=== PATIENT | male | born 1985 | race Caucasian/White ===

== ENCOUNTER → 2018-01-19 07:26 | Outpatient (CLI) | payer OTHER, SELFPAY ==
[2018-01-19 11:21] LABS: Anion Gap 13.5 mEq/L (5-15); Blood Urea Nitrogen 15 mg/dL (7-18); Carbon Dioxide 28 mmol/L (21.0-32.0); Chloride 103 mmol/L (98-107); Creatinine,Serum 0.79 mg/dL (0.70-1.30); Estimated Glomerular Filt Rate 114 ml/min (>60); GFR (African American) 138 ML/MIN (>60); Glucose 107 mg/dL (74-106); Potassium 4.5 mmoL/L (3.5-5.1); Sodium 140 mmol/L (136-145)
== END ==
PROVIDERS: Visit Provider Physician Assistant
DX: I10 Essential (primary) hypertension (principal)
CPT/HCPCS: 36415; 80048

== ENCOUNTER → 2018-03-22 11:01 | Outpatient (POV) | payer OTHER, SELFPAY | PROVIDERS: Visit Provider Dentist | DX: Z00.00 Encounter for general adult medical examination without abnormal findings (principal) ==

== ENCOUNTER → 2018-03-26 14:36 | Outpatient (CLI) | payer OTHER, SELFPAY | PROVIDERS: PCP Family Medicine; Visit Provider Internal Medicine Cardiovascular Disease | DX: G47.33 Obstructive sleep apnea (adult) (pediatric) (principal); R06.83 Snoring; R40.0 Somnolence | CPT/HCPCS: 95806 ==

== ENCOUNTER → 2018-03-28 07:10 | Outpatient (CLI) | payer OTHER, SELFPAY ==
[2018-03-28 08:19] LABS: Basophils % 0.3 % (0.1-2.0); Eosinophils # 0.1 K/mm3 (0.0-0.4); Eosinophils % 1.3 % (0.1-12.0); Hematocrit 46.2 % (42.0-52.0); Hemoglobin 15.6 g/dL (14.1-18.0); Lymphocytes # 1.7 K/mm3 (0.7-4.5); Lymphocytes % 20.5 % (10-50); Mean Corpuscular HGB Conc 33.8 g/dL (31.8-35.4); Mean Corpuscular Hemoglobin 31.6 pg (27.0-31.2); Mean Corpuscular Volume 93.5 fl (80-94); Mean Platelet Volume 7.2 fl (7.4-10.4); Monocytes # 0.5 K/mm3 (0.1-1.0); Monocytes % 5.5 % (1.7-9.3); Neutrophils # 5.9 K/mm3 (1.8-7.8); Neutrophils % 72.4 % (37.0-80.0); Platelet Count 220 K/mm3 (142-424); Red Blood Count 4.95 M/mm3 (4.60-6.20); Red Cell Distribution Width 13.6 % (11.5-17.5); White Blood Count 8.2 K/mm3 (4.8-10.8)
[2018-03-28 10:08] LABS: Alanine Aminotransferase 41 U/L (12-78); Albumin Level 3.7 gm/dL (3.4-5.0); Alkaline Phosphatase 81 U/L (46-116); Anion Gap 13.4 mEq/L (5-15); Aspartate Amino Transferase 20 U/L (15-37); Bilirubin,Direct 0.1 mg/dL (0.0-0.2); Bilirubin,Indirect 0.3 mg/dL (0.0-0.9); Bilirubin,Total 0.4 mg/dL (0.2-1.0); Blood Urea Nitrogen 13 mg/dL (7-18); Calcium 8.7 mg/dL (8.5-10.1); Carbon Dioxide 27 mmol/L (21.0-32.0); Chloride 100 mmol/L (98-107); Chol/HDL Ratio 5.5 (1-3.5); Cholesterol 186 mg/dL (140-200); Creatinine,Serum 0.85 mg/dL (0.70-1.30); Estimated Glomerular Filt Rate 104 ml/min (>60); Free Thyroxine Index 2.6 ug/dL (5.93-13.13); GFR (African American) 126 ML/MIN (>60); Glucose 122 mg/dL (74-106); HDL Cholesterol 34 mg/dL (27-67); LDL Cholesterol 134 mg/dL (0-130); Potassium 4.4 mmoL/L (3.5-5.1); Sodium 136 mmol/L (136-145); T4 (Thyroxine) 8.3 ug/dl (4.7-13.3); Thyroid Stimulating Hormone 2.76 uIU/ml (0.358-3.740); Total Protein,Serum 7.2 gm/dL (6.4-8.2); Triglycerides 90 mg/dL (30-200); Triiodothryronine (T3) Uptake 31 % (31-39); VLDL Cholesterol 18 mg/dL (0-40)
== END ==
PROVIDERS: Visit Provider Internal Medicine Cardiovascular Disease
DX: E66.01 Morbid (severe) obesity due to excess calories (principal); I10 Essential (primary) hypertension; R06.83 Snoring; R40.0 Somnolence; R94.31 Abnormal electrocardiogram [ECG] [EKG]; Z68.41 Body mass index [BMI] 40.0-44.9, adult; Z82.49 Family history of ischemic heart disease and other diseases of the circulatory system
CPT/HCPCS: 36415; 80048; 80061; 80076; 84436; 84443; 84479; 85025

== ENCOUNTER → 2018-03-28 09:30 | Outpatient (CLI) | payer OTHER, SELFPAY ==
--- NOTE | 2018-03-28 09:32 | CA_ITS ---
PROCEDURE: 2-D M-mode and color Doppler study INDICATIONS FOR THE TEST: Chest pain COPD Heart Murmur Tobacco Smoking Palpitations Fatigue Syncope Edema Hypertension+Diabetes Mellitus Rheumatic Fever SOB SEWELL Obesity+Hyperlipidemia Family History HD+ Additional History PATIENT INFORMATION HEIGHT:71 WEIGHT:300 GENDER: Male B/P:121/76 2-D/M-MODE INTERPRETATION: 2-D MEASUREMENTS OBSERVED VALUES IN CMS Right Ventricular Dimension (RVDd) 2.4 Interventricular Septum (Thickness)(IVsd) 1.5 Left Ventricular Internal Dimensions(LVIDd) 3.9 Left Ventricular Posterior Wall (Thickness)(LVPWd) 1.5 Aortic Root 3.6 Aortic Cusp Separation 2.3 Left Atrial Dimensions (LAD) 4.1 2D 1. Left atrium is mildly enlarged, left ventricle is normal size, mild concentric left ventricular hypertrophy, visually estimated ejection fraction 55% with no regional wall motion abnormality. 2. The right atrium and right ventricle are normal size and contractility. 3. The aortic, mitral and tricuspid valvular grossly normal. 4. The pulmonic valve is poorly visualized. 5. No significant pericardial effusion noted. DOPPLER INTERROGATION: Doppler interrogation of the aortic, mitral and tricuspid valvular presence of mild mitral and tricuspid regurgitation, tricuspid regurgitation jet velocity is inadequate for calculation of the right ventricular systolic pressure, grade 1 diastolic dysfunction seen with tissue Doppler evidence of raised left atrial pressure. CONCLUSION: 1. Mildly enlarged left atrium, normal left ventricular size, mild concentric left ventricular hypertrophy, visually estimated ejection fraction 55% with no regional wall motion abnormality, grade 1 diastolic dysfunction seen with tissue Doppler evidence of raised left atrial pressure. 2. Mild mitral and tricuspid regurgitation 3. No significant pericardial effusion noted.
== END ==
PROVIDERS: PCP Family Medicine; Visit Provider Internal Medicine Cardiovascular Disease
DX: E66.01 Morbid (severe) obesity due to excess calories (principal); I10 Essential (primary) hypertension; R06.83 Snoring; R40.0 Somnolence; R94.31 Abnormal electrocardiogram [ECG] [EKG]; Z68.41 Body mass index [BMI] 40.0-44.9, adult; Z82.49 Family history of ischemic heart disease and other diseases of the circulatory system
CPT/HCPCS: 93306

== ENCOUNTER → 2018-04-05 08:09 | Outpatient (POV) | payer OTHER, SELFPAY | PROVIDERS: Visit Provider Dentist | DX: Z00.00 Encounter for general adult medical examination without abnormal findings (principal) ==

== ENCOUNTER → 2018-05-24 07:43 | Outpatient (CLI) | payer OTHER, SELFPAY ==
[2018-05-24 12:30] LABS: Alanine Aminotransferase 36 U/L (12-78); Albumin Level 3.6 gm/dL (3.4-5.0); Alkaline Phosphatase 83 U/L (46-116); Aspartate Amino Transferase 22 U/L (15-37); Bilirubin,Direct 0.1 mg/dL (0.0-0.2); Bilirubin,Indirect 0.4 mg/dL (0.0-0.9); Bilirubin,Total 0.5 mg/dL (0.2-1.0); Chol/HDL Ratio 4.1 (1-3.5); Cholesterol 124 mg/dL (140-200); HDL Cholesterol 30 mg/dL (27-67); LDL Cholesterol 78 mg/dL (0-130); Triglycerides 78 mg/dL (30-200); VLDL Cholesterol 16 mg/dL (0-40)
== END ==
PROVIDERS: Visit Provider Urology
DX: R94.31 Abnormal electrocardiogram [ECG] [EKG] (principal); I10 Essential (primary) hypertension; E66.9 Obesity, unspecified; R06.83 Snoring; R40.0 Somnolence; Z82.49 Family history of ischemic heart disease and other diseases of the circulatory system
CPT/HCPCS: 36415; 80061; 80076

== ENCOUNTER → 2018-05-25 15:16 | Outpatient (CLI) | payer OTHER, SELFPAY | PROVIDERS: Visit Provider Specialist | DX: G47.33 Obstructive sleep apnea (adult) (pediatric) (principal) | CPT/HCPCS: 94762 ==

== ENCOUNTER → 2018-11-16 07:10 | Outpatient (CLI) | payer OTHER, SELFPAY ==
[2018-11-16 08:42] LABS: Alanine Aminotransferase 37 U/L (12-78); Albumin Level 4.2 gm/dL (3.4-5.0); Alkaline Phosphatase 79 U/L (46-116); Aspartate Amino Transferase 22 U/L (15-37); Bilirubin,Direct 0.2 mg/dL (0.0-0.2); Bilirubin,Indirect 0.4 mg/dL (0.0-0.9); Bilirubin,Total 0.6 mg/dL (0.2-1.0); Chol/HDL Ratio 3.6 (1-3.5); Cholesterol 103 mg/dL (140-200); HDL Cholesterol 29 mg/dL (27-67); LDL Cholesterol 63 mg/dL (0-130); Total Protein,Serum 7.6 gm/dL (6.4-8.2); Triglycerides 54 mg/dL (30-200); VLDL Cholesterol 11 mg/dL (0-40)
== END ==
PROVIDERS: Visit Provider Nurse Practitioner Family
DX: E78.2 Mixed hyperlipidemia (principal)
CPT/HCPCS: 36415; 80061; 80076

== ENCOUNTER → 2019-05-03 10:50 | Outpatient (CLI) | payer OTHER, SELFPAY | PROVIDERS: PCP Family Medicine; Visit Provider Nurse Practitioner Family | DX: G47.33 Obstructive sleep apnea (adult) (pediatric) (principal) | CPT/HCPCS: 95806 ==

== ENCOUNTER 2020-02-07 20:29 | Emergency (ER) | payer OTHER, SELFPAY ==
[2020-02-07 20:41] VITALS: BP 138/85; PULSE 92; RESP 20; TEMP 37.2; O2SAT 96; BMI 36.2
--- NOTE | 2020-02-07 20:46 | HMH.EDUTC ---
[facility] [place] Clinical Impression: Exposure to COVID-19 virus Disposition: Home, Self-Care Condition on Discharge: Good Instructions: Preventing the Spread of Coronavirus Discharge Instructions Additional Instructions: Drink plenty of fluids. Take tylenol for pain or fever. Return if you begin to have difficulty breathing. Follow up with your regular doctor. GO TO THE ER FOR ANY WORSENING SYMPTOMS Referrals: Donnell Robin MD [Primary Care Provider] - Time of Disposition: 20:49 Medical Decision Making - Medical Records Medical records reviewed: No: I reviewed the patient's medical records. - Michael Inquiry Pt receiving controlled substance: No Vital Signs: 02/07/20 20:41 Temperature 99.0 F Temperature Source Oral Pulse Rate [Right Brachial] 92 H Respiratory Rate 20 Blood Pressure [Right Arm] 138/85 Blood Pressure Mean [Right Arm] 102 Blood Pressure Source [Right Arm] Automatic Cuff Blood Pressure Position [Right Arm] Sitting 02 Sat by Pulse Oximetry 96 Oxygen Delivery Method Room Air Orders (Tests/Meds): ORDERS Category Date Time Status Covid-19 Nasal PCR ([facility]) Routine Lab 02/07/20 20:44 Ordered [facility] [place] - General Stated complaint: cOVID TEST Time Seen by Provider: 02/07/20 20:46 Mode of Arrival: Ambulatory Source of Information: Patient Limitations: No Limitations Description of Symptoms (Recalled from Triage Doc. by RN): PATIENT REQUESTING COVID TEST D/T EXPOSURE; DENIES SYMPTOMS HEENT Symptoms (Recalled from RN notes): No Resp Symptoms (Recalled from RN notes): No Skin Symptoms (Recalled from RN notes): No MS Symptoms (Recalled from RN notes): No Functional Status (Recalled from RN notes): WNL - Related Data Previous Rx's Medication Instructions Recorded losartan 25 mg tablet 25 mg PO DAILY #90 tab 07/12/19 Allergies Allergy/AdvReac Type Severity Reaction Status Date / Time No Known Allergies Allergy Verified 11/22/18 11:45 - Worker's Comp Is this a Worker's Comp case?: No [facility] History - Hepatitis A Screen Drug use history?: No High risk sexual behaviors?: No History of sexually transmitted infection?: No Currently employed?: No Childcare worker?: No Do you have indoor plumbing?: Yes Do you have electricity?: Yes Attestation statement:: This patient has been screened for Hepatitis A risk factors. I have reviewed the patient's past medical history: Yes Medical History: Reports:: Hyperlipidemia, Hypertension Other Medical History: Reports: Other Comment: HEATH Other Surgeries: Yes: No Previous Surgery - Social History Smoking Status: Never smoker Alcohol Intake: never Substance Use Type: denies use Occupational Status: other Family Hx:: Coronary Artery Disease Comment: Mother-CAD. Maternal Grandmother-CAD. Maternal Grandfather-CAD ROS Obtained: Yes All systems reviewed & no additional complaints - Constitutional Constitutional: Reports system reviewed and no additional complaints, except as docu - Eyes Eyes: Reports system reviewed and no additional complaints, except as docu - ENT Ears, Nose, Mouth, and Throat: Reports system reviewed and no additional complaints, except as docu - Cardiovascular Cardiovascular: Reports system reviewed and no additional complaints, except as docu - Respiratory Respiratory: Yes system reviewed and no additional complaints, except as docu - Gastrointestinal Gastrointestingal: Reports: system reviewed and no additional complaints, except as docu Physical Exam - General General appearance: alert, in no apparent distress - Head Head exam: atraumatic, normocephalic, normal inspection - Eye Eye exam: Present: normal appearance, PERRL, EOMI - ENT ENT exam: Present: normal exam, normal oropharynx, mucous membranes moist, TM's normal bilaterally, normal external ear exam - Neck Neck exam: Present: normal inspection, full ROM, trachea midline. Absent: meningismus, l
[2020-02-07 20:50] VITALS: BP 138/85; PULSE 92; RESP 20; TEMP 37.2; O2SAT 96
== END 2020-02-07 20:53 | disposition home or self-care (01) ==
PROVIDERS: Emergency Provider Nurse Practitioner Family; PCP Family Medicine
DX: Z20.828 Contact with and (suspected) exposure to other viral communicable diseases (principal); I10 Essential (primary) hypertension; E78.5 Hyperlipidemia, unspecified; Z79.899 Other long term (current) drug therapy
CPT/HCPCS: 99201; U0003

== ENCOUNTER → 2021-02-18 08:01 | Outpatient (CLI) | payer OTHER, SELFPAY ==
[2021-02-18 08:10] LABS: Coronavirus 19, PCR Not Detected (NotDetected); Influenza A, PCR Not Detected (NotDetected); Influenza B, PCR Not Detected (NotDetected)
== END ==
PROVIDERS: PCP Family Medicine; Visit Provider Nurse Practitioner
DX: Z20.822 Contact with and (suspected) exposure to COVID-19 (principal)
CPT/HCPCS: C9803; U0003; U0005

== ENCOUNTER 2021-02-21 21:34 | Emergency (ER) | payer OTHER, SELFPAY ==
[2021-02-21 21:35] VITALS: BP 121/64; PULSE 121; RESP 20; TEMP 37.3; O2SAT 96; BMI 39.0
[2021-02-21 21:51] VITALS: BMI 39.0
--- NOTE | 2021-02-21 21:56 | XR_ITS ---
PROCEDURE INFORMATION: Exam: XR Chest Exam date and time: 02/21/2021 9:56 PM Age: 35 years old Clinical indication: Fever and shortness of breath TECHNIQUE: Imaging protocol: XR of the chest. Views: 2 views. COMPARISON: No relevant prior studies available. FINDINGS: Airway: Patent Lungs: Unremarkable. No consolidation. Pleural spaces: Unremarkable. No pleural effusion. No pneumothorax. Heart/Mediastinum: Unremarkable. No cardiomegaly. Bones/joints: No acute skeletal abnormality or aggressive osseous lesion. IMPRESSION: No acute findings.
--- NOTE | 2021-02-21 22:12 | HMH.EDWEAK ---
ED Disposition Clinical Impression: Bronchitis, SIRS (systemic inflammatory response syndrome) Disposition: Home, Self-Care Condition on Discharge: Good Instructions: DI for Acute Bronchitis Additional Instructions: fluids and use meds as directed Prescriptions: predniSONE [Prednisone 20mg Tab] 20 mg PO BID #10 tab Transmission Status: [facility] Azithromycin [Zithromax 250mg tab] 250 mg PO DIRECTED #6 tab Transmission Status: [facility] Referrals: Donnell Robin MD [Primary Care Provider] - - Critical Care Critical Care Time: No Attestation: On 02/21/21, the high probability of a clinically significant, sudden or life threatening deterioration of the following system(s) required my full and direct attention, intervention and personal management. The time I documented below is in addition to time spent performing reported procedures but includes the following listed in this critical care notation. Medical Decision Making - Medical Records Medical records reviewed: Yes: I reviewed the patient's medical records. - Michael Inquiry Pt receiving controlled substance: No Vital Signs: 02/21/21 21:35 Temperature 99.2 F Temperature Source Oral Pulse Rate [Right] 121 H Respiratory Rate 20 Blood Pressure [Right Arm] 121/64 Blood Pressure Mean [Right Arm] 83 02 Sat by Pulse Oximetry 96 - Lab Data Lab results reviewed: Yes: I reviewed the patient's lab results. Lab Results 02/21/21 21:50: SARS-CoV-2 (PCR) Not detected, Influenza A Untype (PCR) Not detected, Influenza Type B (PCR) Not detected 02/21/21 22:07: WBC 2.5 L, RBC 4.69, Hgb 14.5, Hct 41.0 L, MCV 87.3, MCH 30.9, MCHC 35.4, RDW 13.3, Plt Count 110 L, MPV 8.2, Neut % (Auto) 69.7, Lymph % (Auto) 26.5, Clayton % (Auto) 2.6, Eos % (Auto) 1.1, Baso % (Auto) 0.3, Neut # (Auto) 1.7 L, Lymph # (Auto) 0.7, Clayton # (Auto) 0.1, Eos # (Auto) 0.0, Baso # (Auto) 0.0, ESR 31 H 02/21/21 22:07: Sodium 132 L, Potassium 3.8, Chloride 102, Carbon Dioxide 25, Anion Gap 8.8, BUN 16, Creatinine 0.70, Estimated Creat Clear 265, Estimated GFR 128, Est GFR ( Amer) 155, Glucose 136 H, Calcium 8.8, Total Bilirubin 1.3, AST 57, ALT 41, Alkaline Phosphatase 74, C-Reactive Protein 62.3 H, Total Protein 7.1, Albumin 4.0, Globulin 3.1, Albumin/Globulin Ratio 1.3, Procalcitonin 0.192 Result diagrams: 02/21/21 22:07 02/21/21 22:07 Orders (Tests/Meds): ED MEDICATIONS Generic Name Dose Route Start Last Admin Trade Name Freq PRN Reason Stop Dose Admin Sodium Chloride 1,000 mls @ 999 mls/hr 02/21/21 22:00 02/21/21 22:54 Sod Chlor 0.9% 1000ml Bag IV 02/21/21 23:00 999 mls/hr .Q1H1M DEBORAH Administration Ceftriaxone Sodium 1 gm/ 50 mls @ 100 mls/hr 02/21/21 23:45 02/21/21 23:42 Sodium Chloride IV 03/07/21 23:44 100 mls/hr Q24H DEBORAH Administration Discontinued Medications Generic Name Dose Route Start Last Admin Trade Name Freq PRN Reason Stop Dose Admin Ketorolac Tromethamine 30 mg 02/21/21 21:57 02/21/21 22:54 Ketorolac 30mg/Ml Vial IV 02/21/21 21:58 30 mg ONCE ONE Administration Methylprednisolone Sodium Succinate 125 mg 02/21/21 23:31 02/21/21 23:42 Methylprednisolone Sod Succ 125mg Vial IV 02/21/21 23:32 125 mg ONCE ONE Administration ORDERS Category Date Time Status Full Resp Panel w/COVID ([facility]) Routine Lab 02/21/21 21:50 Received - Radiology Data #1 Image(s): Chest Image Reviewed: Yes I have reviewed radiologist's interpretation Preliminary Findings: Normal/NAD Medical Decision Narrative: possible atypical infection with no covid-19 and stable labs and xray Weakness HPI - General Chief complaint: Weakness Stated complaint: fever,SOB Time Seen by Provider: 02/21/21 21:45 Mode of Arrival: Ambulatory Source of Information: Patient, Medical Record Limitations: No Limitations Description of Symptoms (Recalled from ER Triage Doc. by RN): pt
[2021-02-21 22:16] LABS: Coronavirus 19, PCR Not Detected (NotDetected); Influenza A, PCR Not Detected (NotDetected); Influenza B, PCR Not Detected (NotDetected)
[2021-02-21 22:19] LABS: Basophils % 0.3 % (0.1-2.0); Eosinophils % 1.1 % (0.1-12.0); Hemoglobin 14.5 g/dL (14.1-18.0); Lymphocytes # 0.7 K/mm3 (0.7-4.5); Lymphocytes % 26.5 % (10-50); Mean Corpuscular HGB Conc 35.4 g/dL (31.8-35.4); Mean Corpuscular Hemoglobin 30.9 pg (27.0-31.2); Mean Corpuscular Volume 87.3 fl (80-94); Mean Platelet Volume 8.2 fl (7.4-10.4); Monocytes # 0.1 K/mm3 (0.1-1.0); Monocytes % 2.6 % (1.7-9.3); Neutrophils # 1.7 K/mm3 (1.8-7.8); Neutrophils % 69.7 % (37.0-80.0); Platelet Count 110 K/mm3 (142-424); Red Blood Count 4.69 M/mm3 (4.60-6.20); Red Cell Distribution Width 13.3 % (11.5-17.5); White Blood Count 2.5 K/mm3 (4.8-10.8)
[2021-02-21 22:23] LABS: Alanine Aminotransferase 41 U/L (12-78); Albumin/Globulin Ratio 1.3 (1.1-1.8); Alkaline Phosphatase 74 U/L (38-126); Anion Gap 8.8 mEq/L (5-15); Aspartate Amino Transferase 57 U/L (17-59); Bilirubin,Total 1.3 mg/dl (0.2-1.3); Blood Urea Nitrogen 16 mg/dl (9-20); Calcium 8.8 mg/dl (8.4-10.2); Carbon Dioxide 25 mmol/L (22.0-30.0); Chloride 102 mmol/L (98-107); Creatinine Clearance Estimated 265 mL/min (50-200); Estimated Glomerular Filt Rate 128 ml/min (>60); GFR (African American) 155 ML/MIN (>60); Globulin 3.1 g/dL (1.3-3.2); Glucose 136 mg/dl (74-100); Potassium 3.8 mmoL/L (3.5-5.1); Sodium 132 mmol/L (136-145); Total Protein,Serum 7.1 g/dl (6.3-8.2)
[2021-02-21 22:29] LABS: C-Reactive Protein 62.3 mg/L (0-4)
[2021-02-21 22:43] LABS: Erythrocyte Sedimentation Rate 31 mm/hr (0-15); Procalcitonin 0.192 ng/mL (0.0-2.0)
[2021-02-21 23:07] LABS: Adenovirus,PCR Not Detected (NotDetected); Bordetella Pertussis Not Detected (NotDetected); Chlamydophila Pneumoniae, PCR Not Detected (NotDetected); Coronavirus 19, PCR Not Detected (NotDetected); Coronavirus 229E Not Detected (NotDetected); Coronavirus NL63 Not Detected (NotDetected); Coronavirus OC43 Not Detected (NotDetected); Coronovirus HKU1,PCR Not Detected (NotDetected); Human Metapneumovirus Not Detected (NotDetected); Influenza A, PCR Not Detected (NotDetected); Influenza AH1, 2009 Not Detected (NotDetected); Influenza AH1, PCR Not Detected (NotDetected); Influenza AH3,PCR Not Detected (NotDetected); Influenza B, PCR Not Detected (NotDetected); Mycoplasma Pneumoniae, PCR Not Detected (NotDetected); Parainfluenza 1, PCR Not Detected (NotDetected); Parainfluenza 2, PCR Not Detected (NotDetected); Parainfluenza 3, PCR Not Detected (NotDetected); Parainfluenza 4, PCR Not Detected (NotDetected); Respiratory Syncytial Virus Not Detected (NotDetected); Rhinovirus/Enterovirus Not Detected (NotDetected)
[2021-02-21 23:59] VITALS: BP 120/67; PULSE 91; RESP 20; TEMP 37; O2SAT 98
--- NOTE | 2021-02-22 00:04 | PC.NURSE ---
~30 min left on respiratory panel, notified. Pt ok with going home and viewing results on portal
== END 2021-02-22 00:16 | disposition home or self-care (01) ==
PROVIDERS: Emergency Provider Emergency Medicine; PCP Family Medicine
DX: J20.9 Acute bronchitis, unspecified (principal); R65.10 Systemic inflammatory response syndrome (SIRS) of non-infectious origin without acute organ dysfunction; I10 Essential (primary) hypertension; E78.5 Hyperlipidemia, unspecified
CPT/HCPCS: 71046; 80053; 84145; 85025; 85651; 86140; 87581; 87632; 87798; 96365; 96367; 96375; 99283; C9803; U0003; U0005

== ENCOUNTER 2021-10-09 16:19 | Emergency (ER) | payer OTHER, SELFPAY ==
[2021-10-09 16:21] VITALS: BP 133/65; PULSE 104; RESP 17; TEMP 36.9; O2SAT 97; BMI 39.0
--- NOTE | 2021-10-09 16:54 | HMH.EDUTC ---
[facility] [place] Disposition Clinical Impression: Laceration of left thumb Qualifiers: Encounter type: initial encounter Damage to nail status: without damage Foreign body presence: without foreign body Qualified Code(s): S61.012A - Laceration without foreign body of left thumb without damage to nail, initial encounter Disposition: Home, Self-Care Condition on Discharge: Good Instructions: How to Care for a Laceration After Repair, DI for Laceration Repair -- Simple Additional Instructions: Keep the wound clean and dry. Keep a dressing on it if you are going to be getting it dirty. Watch the for signs of infection, such as redness, swelling, drainage, fever. etc. Taketylenol or ibuprofen for pain. Follow up with your regular doctor. Return in 10 days to have the sutures removed. GO TO THE ER FOR ANY WORSENING SYMPTOMS OR CONCERNS. Prescriptions: cephALEXin [cephALEXin 500mg capsule] 500 mg PO Q6H 10 Days #40 cap Transmission Status: Received by [id number] Referrals: Donnell Robin MD [Primary Care Provider] - Time of Disposition: 18:12 Medical Decision Making - Medical Records Medical records reviewed: No: I reviewed the patient's medical records. - Michael Inquiry Pt receiving controlled substance: No Vital Signs: 10/09/21 16:21 10/09/21 16:58 10/09/21 18:18 Temperature 98.5 F 98.9 F 98.9 F Temperature Source Oral Oral Pulse Rate 94 H Pulse Rate [Right Radial] 104 H 94 H Respiratory Rate 17 17 17 Blood Pressure 139/88 Blood Pressure [Right Arm] 133/65 139/88 Blood Pressure Mean [Right Arm] 87 105 Blood Pressure Source [Right Arm] Automatic Cuff Blood Pressure Position [Right Arm] Sitting 02 Sat by Pulse Oximetry 97 100 Oxygen Delivery Method Room Air [facility] [place] HPI - General Stated complaint: AO 10/09 L thumb lac Time Seen by Provider: 10/09/21 16:54 Mode of Arrival: Ambulatory Source of Information: Patient Limitations: No Limitations Description of Symptoms (Recalled from Triage Doc. by RN): Pt presents with a lac to the left thumb. States that he was using a new razor blade to cut a deer stand out of a tree, when the knife slipped, cutting his thumb. - History of Present Illness Provider Complaint: He states that he was cutting something on a deer stand when he slipped and cut his left thumb. 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 - Related Data Previous Rx's Medication Instructions Recorded losartan 25 mg tablet 25 mg PO DAILY #90 tab 07/12/19 Azithromycin [Zithromax 250mg 250 mg PO DIRECTED #6 tab 02/22/21 tab] predniSONE [Prednisone 20mg 20 mg PO BID #10 tab 02/22/21 Tab] cephALEXin [cephALEXin 500mg 500 mg PO Q6H 10 Days #40 cap 10/09/21 capsule] Allergies Allergy/AdvReac Type Severity Reaction Status Date / Time No Known Allergies Allergy Verified 11/22/18 11:45 [facility] History - Hepatitis A Screen Attestation statement:: This patient has been screened for Hepatitis A risk factors. I have reviewed the patient's past medical history: Yes Medical History: Reports:: Hyperlipidemia, Hypertension Other Medical History: Reports: Other Comment: HEATH Other Surgeries: Yes: No Previous Surgery - Social History Smoking Status: Never smoker Alcohol Intake: never Substance Use Type: denies use Occupational Status: other Family Hx:: Coronary Artery Disease Comment: Mother-CAD. Maternal Grandmother-CAD. Maternal Grandfather-CAD ROS Obtained: Yes All systems reviewed & no additional complaints - Constitutional Constitutional: Denies chills, Denies fever(s) - Musculoskeletal Musculoskeletal: Denies joint pain - Integumentary/Breasts Skin/Breast: Reports as per HPI - Neurologic Neurologic: Denies tingling/numbness/burning sensations Physical Exam - General General appearance: alert, in no apparent distress - Head Head exam: atraumatic, normocephalic, normal insp
[2021-10-09 16:58] VITALS: BP 139/88; PULSE 94; RESP 17; TEMP 37.2; O2SAT 100; BMI 39.0
--- NOTE | 2021-10-09 18:15 | PC.NURSE ---
patient refused tdap shot stating that last time he received the shot it made him very sick. notified
[2021-10-09 18:18] VITALS: BP 139/88; PULSE 94; RESP 17; TEMP 37.2
== END 2021-10-09 18:19 | disposition home or self-care (01) ==
PROVIDERS: Emergency Provider Nurse Practitioner Family; PCP Family Medicine
DX: S61.012A Laceration without foreign body of left thumb without damage to nail, initial encounter (principal); W26.0XXA Contact with knife, initial encounter; Y93.89 Activity, other specified; Y92.9 Unspecified place or not applicable; Y99.8 Other external cause status
CPT/HCPCS: 12001; 99213; G0463

== ENCOUNTER 2022-05-21 14:55 | Emergency (ER) | payer OTHER, SELFPAY ==
[2022-05-21 15:10] VITALS: BP 144/89; PULSE 87; RESP 20; TEMP 36.5; O2SAT 99; BMI 39.7
--- NOTE | 2022-05-21 15:58 | EXP.UTC ---
Discharge Plan Disposition Patient Disposition: Home, Self-Care Condition: Good Prescriptions Prescriptions: New sulfamethoxazole-trimethoprim [Bactrim DS] 800-160 mg tablet 1 tab PO Q12H Qty: 20 0RF methylprednisolone [Medrol (Reid)] 4 mg tablets,dose pack 4 mg PO ONCE 6 Days Qty: 6 0RF Rx Instructions: Medrol dose taper reid Referrals Follow up/Referrals: Donnell Robin MD [Primary Care Provider] - See instructions Clinical Impressions Clinical Impression: Cellulitis Instructions Patient Instructions: Cellulitis Discharge ED Provider: Yanira Pfeiffer [facility] [place] HPI General Stated complaint: left side swollen face and eye Mode of Arrival: Ambulatory Source of Information: Patient Limitations: No Limitations Time Seen by Provider: 05/21/22 15:38 Description of Symptoms (Recalled from Triage Doc. by RN): PATIENT C/O SWELLING TO LEFT SIDE OF FACE X 2 DAYS HEENT Symptoms (Recalled from RN notes): Yes Resp Symptoms (Recalled from RN notes): No Skin Symptoms (Recalled from RN notes): No MS Symptoms (Recalled from RN notes): No Functional Status (Recalled from RN notes): wnl History of Present Illness Provider Complaint: Pt states that he started with a sore in his brow like a pimple or infected hair follicle. He relates that the next day he had some swelling around his eye and then the next day the whole left side of his face. He was on a trip at the time and waited to get home to be seen. Related Data Previous Rx's Medication Instructions Recorded methylprednisolone 4 mg tablets in 4 mg PO ONCE 6 days #6 tabs 05/21/22 a dose pack (Medrol (Reid)) sulfamethoxazole 800 1 tab PO Q12H #20 tabs 05/21/22 mg-trimethoprim 160 mg tablet (Bactrim DS) Allergies Allergy/AdvReac Type Severity Reaction Status Date / Time No Known Allergies Allergy Verified 02/25/22 10:41 Worker's Comp Is this a Worker's Comp case?: No [facility] Disclaimer: The information contained in this section may have been updated after the patient was seen, as this information can be updated by other users. Medical History Bronchitis Diastolic dysfunction Exposure to COVID-19 virus HTN (hypertension) Laceration of left thumb HEATH on CPAP SIRS (systemic inflammatory response syndrome) Tachycardia URI (upper respiratory infection) Social History Smoking Status: Never smoker alcohol intake: never substance use type: denies use current occupational status: other Travel in the last 8 weeks: None ROS Obtained: Yes All systems reviewed & no additional complaints except as documented Constitutional Constitutional: Reports system reviewed and no additional complaints, except as documented Eyes Eyes: Reports system reviewed and no additional complaints, except as documented Comments: left eye lid swelling ENT Ears, Nose, Mouth, and Throat: Reports system reviewed and no additional complaints, except as documented Cardiovascular Cardiovascular: Reports system reviewed and no additional complaints, except as documented Respiratory Respiratory: Reports system reviewed and no additional complaints, except as documented Gastrointestinal Gastrointestingal: Reports system reviewed and no additional complaints, except as documented Genitourinary Male Genitourinary: Reports system reviewed and no additional complaints, except as documented Musculoskeletal Musculoskeletal: Reports system reviewed and no additional complaints, except as documented Integumentary/Breasts Skin/Breast: Reports system reviewed and no additional complaints, except as documented and Reports skin swelling Comments: swelling of face Neurologic Neurologic: Reports system reviewed and no additional complaints, except as documented Endocrine Endocrine: Reports system reviewed and no additional complaints, except as documented Aller
[2022-05-21 16:19] VITALS: BP 144/89; PULSE 87; RESP 20; TEMP 36.5; O2SAT 99
== END 2022-05-21 16:26 | disposition home or self-care (01) ==
PROVIDERS: Emergency Provider Nurse Practitioner Family; PCP Family Medicine
DX: L03.211 Cellulitis of face (principal)
CPT/HCPCS: 96372; 99212; 99214; G0463

== ENCOUNTER → 2023-02-23 07:03 | Outpatient (CLI) | payer OTHER, SELFPAY ==
[2023-02-23 07:40] LABS: Basophils % 0.4 % (0.1-2.0); Eosinophils # 0.1 K/mm3 (0.0-0.4); Eosinophils % 1.5 % (0.1-12.0); Hemoglobin 16.5 g/dL (14.1-18.0); Lymphocytes # 1.3 K/mm3 (0.7-4.5); Lymphocytes % 20.6 % (10-50); Mean Corpuscular HGB Conc 34.4 g/dL (31.8-35.4); Mean Corpuscular Hemoglobin 32.3 pg (27.0-31.2); Mean Platelet Volume 8.2 fl (7.4-10.4); Monocytes # 0.4 K/mm3 (0.1-1.0); Monocytes % 5.9 % (1.7-9.3); Neutrophils # 4.6 K/mm3 (1.8-7.8); Neutrophils % 71.5 % (37.0-80.0); Platelet Count 189 K/mm3 (142-424); Red Cell Distribution Width 13.5 % (11.5-17.5); White Blood Count 6.5 K/mm3 (4.8-10.8)
[2023-02-23 07:48] LABS: Hemoglobin A1C 5.7 % (4.0-6.0)
[2023-02-23 08:57] LABS: Thyroid Stimulating Hormone 2.96 uIU/mL (0.465-4.68)
[2023-02-23 09:01] LABS: Ferritin 345 ng/ml (17.9-464)
[2023-02-23 12:19] LABS: Vitamin B12 351 pg/mL (239-931)
[2023-02-24 10:12] LABS: Insulin Level Total 32.4 uIU/mL (2.6-24.9)
== END ==
PROVIDERS: PCP Nurse Practitioner Family; Visit Provider Nurse Practitioner Family
DX: G47.33 Obstructive sleep apnea (adult) (pediatric) (principal); R63.5 Abnormal weight gain; Z99.89 Dependence on other enabling machines and devices; R73.09 Other abnormal glucose
CPT/HCPCS: 36415; 82607; 82728; 83036; 83525; 84443; 85025

== ENCOUNTER 2023-06-21 14:39 | Outpatient (CLI) | payer OTHER, SELFPAY ==
[2023-06-21 14:15] LABS: Hemoglobin A1C 5.7 % (4.0-6.0)
[2023-06-21 14:43] LABS: Chloride 105 mmol/L (98-107); Potassium 4.4 mmoL/L (3.5-5.1); Sodium 139 mmol/L (136-145)
[2023-06-21 14:45] LABS: Blood Urea Nitrogen 8 mg/dl (9-20); Estimated Glomerular Filt Rate 152 ml/min (>60); GFR (African American) 183 ML/MIN (>60)
[2023-06-21 14:46] LABS: Alanine Aminotransferase 51 U/L (12-78); Albumin Level 4.3 g/dl (3.5-5.0); Albumin/Globulin Ratio 1.6 (1.1-1.8); Alkaline Phosphatase 78 U/L (38-126); Anion Gap 12.4 mEq/L (5-15); Aspartate Amino Transferase 38 U/L (17-59); Bilirubin,Total 0.7 mg/dl (0.2-1.3); Calcium 9.2 mg/dl (8.4-10.2); Carbon Dioxide 26 mmol/L (22.0-30.0); Globulin 2.7 g/dL (1.3-3.2); Glucose 106 mg/dl (74-100)
[2023-06-22 09:14] LABS: Insulin Level Total 24.4 uIU/mL (2.6-24.9)
== END 2023-06-21 23:59 | disposition home or self-care (01) ==
LOC: LAB.DROPOF 14:39
PROVIDERS: PCP Nurse Practitioner Family; Visit Provider Nurse Practitioner Family
DX: R73.03 Prediabetes (principal)
CPT/HCPCS: 80053; 83036; 83525

== ENCOUNTER 2023-07-18 07:12 | Outpatient (CLI) | payer OTHER, SELFPAY ==
[2023-07-18 09:34] LABS: 25-OH Vitamin D, Total 24.5 ng/mL (30-100)
[2023-07-19 16:32] LABS: Deamidated Gliadin Abs, IgA 8 units (0-19); Deamidated Gliadin Abs, IgG 3 units (0-19); Endomysial IgA Antibody Negative (Negative); Tissue Transglutaminase IgA Ab <2 U/mL (0-3); Tissue Transglutaminase IgG Ab 4 U/mL (0-5)
[2023-07-21 11:19] LABS: Reticulin IgA Antibody Negative titer (Neg:<1:2.5)
[2023-07-23 12:55] LABS: F026-IgE Pork 1.98 kU/L (Class III); F027-IgE Beef 2.54 kU/L (Class III); F088-IgE Lamb 1.41 kU/L (Class III); Immunoglobulin E, Total 2432 IU/mL (6-495); O215-IgE Alpha-Gal 6.17 kU/L (Class IV)
== END 2023-07-18 23:59 | disposition home or self-care (01) ==
LOC: LAB 07:13
PROVIDERS: PCP Nurse Practitioner Family; Visit Provider Nurse Practitioner Family
DX: L13.0 Dermatitis herpetiformis (principal); R19.7 Diarrhea, unspecified; R73.03 Prediabetes; R63.5 Abnormal weight gain; E55.9 Vitamin D deficiency, unspecified; Z68.41 Body mass index [BMI] 40.0-44.9, adult
CPT/HCPCS: 36415; 82306; 83516; 86255; 86256

== ENCOUNTER 2023-10-24 15:38 | Outpatient (POV) | payer OTHER, SELFPAY | END 2023-10-24 23:59 | disposition home or self-care (01) | LOC: SC 15:39 | PROVIDERS: PCP Nurse Practitioner Family; Visit Provider Dermatology | DX: Z00.00 Encounter for general adult medical examination without abnormal findings (principal) ==

== ENCOUNTER 2024-12-23 07:30 | Emergency (ER) | payer OTHER, SELFPAY ==
[2024-12-23 07:32] VITALS: BP 140/90; PULSE 78; RESP 17; TEMP 36.8; O2SAT 100; BMI 41.8
--- NOTE | 2024-12-23 07:33 | HMH.EDGENADL ---
Discharge Plan Disposition Patient Disposition: Home, Self-Care Condition: Fair Prescriptions Prescriptions: New acetaminophen 500 mg capsule 1,000 mg PO Q6H PRN (Reason: pain) Qty: 30 0RF ibuprofen 800 mg tablet 800 mg PO Q8H Qty: 30 0RF tamsulosin [Flomax] 0.4 mg capsule 0.4 mg PO DAILY Qty: 7 0RF ondansetron 4 mg tablet,disintegrating 4 mg PO Q6HP PRN (Reason: nausea and vomiting) Qty: 20 0RF oxycodone 5 mg tablet 5 mg PO Q6H PRN (Reason: pain) Qty: 12 0RF No Action epinephrine [EpiPen 2-Reid] 0.3 mg/0.3 mL auto-injector 0.3 mg IM Q5-15M PRN (Reason: anaphylaxis) Qty: 2 1RF Rx Instructions: do not exceed 3 doses per episode ofloxacin 0.3 % drops See Rx Instructions ophthalmic (eye) .COMPLEX Qty: 10 0RF Rx Instructions: put 1-2 drps into affected eye(s) every 2-4 h x 2 days, then 1-2 drps 4 times/day days 3-7 ophthalmic (eye) triamcinolone acetonide 0.1 % cream 1 applic topical BID Qty: 30 2RF Referrals Follow up/Referrals: Yulissa Ledesma APRN [Primary Care Provider, Medical] - See instructions Activity Restrictions/Add. Instructions Additional Instructions/Restrictions: Stay well-hydrated. Strain your urine and collect any stone. Follow-up with urology. Call them to make an appointment. [phone]. Return to the emergency department at once if you develop any fevers, inability to urinate, worsening pain despite the medications at home. You have been prescribed opioid pain medications. Take only as prescribed and only when needed for pain. Please do not drive, operate heavy machinery, or make important decisions while taking this medication until you know how it affects you as they can impair your judgement. Do not drink alcohol while taking this medication. Should you need a refill of this pain medication, please contact your primary care provider. Clinical Impressions Clinical Impression: Ureterolithiasis Print Language Print Language: Korean Discharge ED Provider: Steven Harper Adult [facility] General Chief complaint: PAIN Stated complaint: side/back Pain-L side Time Seen by Provider: 12/23/24 07:33 History of Present Illness HPI narrative: Patient is a 39-year-old male with no significant past medical history who presents today for left flank pain. He does have a history of kidney stones once about 15 years ago that was treated symptomatically. He reports that about 30 minutes prior to arrival, he began to feel left flank pain that is sharp and stabbing and coming in waves. It is similar to his previous pain that he felt with his kidney stone. He reports that he has urinated normally since then. No hematuria. No dysuria. No fevers nausea vomiting diarrhea. He had a normal bowel movement yesterday and is still passing gas. No abdominal surgical history. Denies any chest pain shortness of breath or other constitutional symptoms like cough congestion runny nose. He does report that he was slightly fatigued over the weekend. Eating and drinking normally. Related Data Previous Rx's ?Medication ?Instructions ?Recorded epinephrine 0.3 mg/0.3 mL 0.3 mg (0.3 mL) IM Q5-15M PRN 07/25/23 injection, auto-injector (EpiPen anaphylaxis #2 ea 2-Reid) ofloxacin 0.3 % eye drops See Rx Instructions ophthalmic 05/09/24 (eye) .COMPLEX #10 mL triamcinolone acetonide 0.1 % 1 applic topical BID #30 grams 07/17/24 topical cream acetaminophen 500 mg capsule 1,000 mg (2 x 500 mg) PO Q6H PRN 12/23/24 pain #30 caps ibuprofen 800 mg tablet 800 mg PO Q8H #30 tabs 12/23/24 ondansetron 4 mg disintegrating 4 mg PO Q6HP PRN nausea and 12/23/24 tablet vomiting #20 tabs oxycodone 5 mg tablet 5 mg PO Q6H PRN pain #12 tabs 12/23/24 tamsulosin 0.4 mg capsule (Flomax) 0.4 mg PO DAILY #7 caps 12/23/24 Allergies Allergy/AdvReac Type Severity Reaction Status Date / Time No Known Allergies Allergy Verified 02/29/24 15:12 [facility] Disclaimer: The information contained in this section may have been updated after the patient was seen, as this information can be updated by other users. Medical History BMI 40.0-44.9, adult Bronchitis Diastolic dysfunction Exposure to COVID-19 virus HTN (hypertension) Laceration of left thumb HEATH on CPAP History of severe HEATH, significant improvement with weight loss, reoccurrence with weight gain, appropriately resumed CPAP SIRS (systemic inflammatory response syndrome) Tachycardia URI (upper respiratory infection) Surgical History No history of previous surgery Family History Other Diabetes Hypertension Sleep apnea Social History Smoking Status: Never smoker alcohol intake: never substance use type: denies use current occupational status: employed and other Travel in the last 8 weeks?: None household members: spouse housing: house marital status: caffeine: Yes Have you lived/traveled outside [place] in past 30 days?: No Contact w/someone who lives/traveled outside US past 30 days?: No Exposure to someone with infectious disease in past 14 days?: No Do you have a fever (greater than 100.4 F or 38 C)?: No Have you tested positive for COVID-19?: No Exposed to someone with COVID-19 in past 14 days?: No Do you have a sore throat?: No Do you have a cough?: No Do you have any weakness?: No Do you have any diarrhea?: No Are you experiencing any unusual bleeding?: No Do you have any muscle aches/pain?: No Do you have any abdominal pain?: No Are you experiencing loss of taste or smell?: No Other Medical History Have you received the Flu Vaccine for this season: Yes Have you received the Pneumonia Vaccine: No ROS Obtained: Yes All systems reviewed & no additional complaints except as documented Physical Exam General General appearance: alert and in no apparent distress Head Head exam: atraumatic and normocephalic Eye Eye exam: Present PERRL and EOMI ENT ENT exam: Present normal oropharynx Neck Neck exam: Present full ROM and trachea midline Chest Chest inspection: Present symmetric chest wall rise Respiratory Respiratory exam: Present normal lung sounds bilaterally; Absent stridor Cardiovascular Cardiovascular exam: Present regular rate and normal rhythm Abdominal Exam Abdominal exam: Present soft and other (Moderate left flank tenderness); Absent distention or tenderness Extremities Exam Extremities exam: Present full ROM Neurological Exam Neurological exam: Present alert and oriented X3 Psychiatric Psychiatric exam: Present normal mood Skin Skin exam: Present warm and dry Medical Decision Making Medical Records Screening: Per USPSTF and CDC recommendations, given the prevalence of disease in our region, it is our hospital?s policy to screen for HIV and viral Hepatitis for all patients aged 18 and over and those with ongoing risk factors. Michael Inquiry Pt receiving controlled substance: Yes Michael was queried for this patient: Yes Risks and benefits of using a controlled substance: were discussed with pt by me Vital Signs: 12/23/24 07:32 12/23/24 07:32 12/23/24 07:37 Temperature 98.3 F 98.3 F Temperature Source Oral Oral Pulse Rate 78 74 Pulse Rate [Right] 78 Respiratory Rate 17 17 Blood Pressure 140/90 140/90 Blood Pressure [Right Arm] 140/90 Blood Pressure Mean Blood Pressure Mean [Right Arm] 106 Blood Pressure Source Automatic Cuff Blood Pressure Source [Right Arm] Automatic Cuff Blood Pressure Position Supine Blood Pressure Position [Right Arm] Supine 02 Sat by Pulse Oximetry 100 100 99 Oxygen Delivery Method Room Air Room Air Room Air 12/23/24 09:30 12/23/24 10:00 Temperature Temperature Source Pulse Rate 74 124 H Pulse Rate [Right] Respiratory Rate Blood Pressure 132/80 124/76 Blood Pressure [Right Arm] Blood Pressure Mean 85 Blood Pressure Mean [Right Arm] Blood Pressure Source Blood Pressure Source [Right Arm] Blood Pressure Position Blood Pressure Position [Right Arm] 02 Sat by Pulse Oximetry 99 96 Oxygen Delivery Method Room Air Room Air Lab Data Lab Results 12/23/24 07:30: HCV Ab RASHIDA w/Rflx PCR Qn Negative, HIV Ag/Ab Combo Qual Negative 12/23/24 07:38: WBC 7.1, RBC 5.15, Hgb 16.1, Hct 46.5, MCV 90.3, MCH 31.3 H, MCHC 34.6, RDW 12.8, Plt Count 201, MPV 10.2, Neut % (Auto) 72.6, Lymph % (Auto) 17.7, Day % (Auto) 6.5, Eos % (Auto) 2.5, Baso % (Auto) 0.3, Neut # (Auto) 5.2, Lymph # (Auto) 1.3, Day # (Auto) 0.5, Eos # (Auto) 0.2, Baso # (Auto) 0.0, Sodium 135 L, Potassium 4.2, Chloride 98, Carbon Dioxide 31 H, Anion Gap 10.2, BUN 12, Creatinine 0.80, Estimated Creat Clear 132, Estimated GFR 108, Est GFR ( Amer) 130, Glucose 149 H, Calcium 8.8, Total Bilirubin 0.7, AST 44, ALT 47, Alkaline Phosphatase 85, Total Protein 8.1, Albumin 4.2, Globulin 3.9 H, Albumin/Globulin Ratio 1.1, Lipase 108, Urine Color Yellow, Urine Appearance Clear, Urine pH 6.0, Ur Specific [place] 1.025, Urine Protein Negative, Urine Glucose (UA) Negative, Urine Ketones Negative, Urine Blood Negative, Urine Nitrate Negative, Urine Bilirubin Negative, Urine Urobilinogen 0.2, Ur Leukocyte Esterase Negative, Urine RBC None, Urine WBC Occasional, Ur Squamous Epith Cells Occasional, Urine Bacteria None 12/23/24 07:38 12/23/24 07:38 Orders (Tests/Meds): ED MEDICATIONS Discontinued Medications Generic Name Dose Route Start Last Admin Trade Name Lavern PRN Reason Stop Dose Admin Acetaminophen 1,000 mg 12/23/24 07:44 12/23/24 07:55 Acetaminophen 500mg Tab PO 12/23/24 07:45 1,000 mg ONCE ONE Administration Hydromorphone HCl 1 mg 12/23/24 09:18 12/23/24 09:30 Hydromorphone 2mg/Ml Syringe IV 12/23/24 09:19 1 mg ONCE ONE Administration Lactated Ringer's 1,000 mls @ 999 mls/hr 12/23/24 07:54 12/23/24 09:14 Lactated Ringer's 1000 Ml Bag IV 12/23/24 08:54 Infused .Q1H1M ONE Infusion Ketorolac Tromethamine 15 mg 12/23/24 07:44 12/23/24 07:55 Ketorolac 30mg/Ml Vial IV 12/23/24 07:45 15 mg ONCE ONE Administration Morphine Sulfate 4 mg 12/23/24 08:51 12/23/24 08:57 Morphine 4mg/Ml Syringe IV 12/23/24 08:52 4 mg ONCE ONE Administration Ondansetron HCl 4 mg 12/23/24 07:44 12/23/24 07:54 Ondansetron 4mg/2ml Vial IV 12/23/24 07:45 4 mg ONCE ONE Administration Tamsulosin HCl 0.4 mg 12/23/24 07:55 12/23/24 07:59 Tamsulosin 0.4mg Capsule PO 12/23/24 07:56 0.4 mg ONCE ONE Administration ORDERS Category Date Time Status CT abdomen pelvis wo con Stat Cat Scan 12/23/24 07:44 Completed CBC w/Auto Diff [Complete Blood Count Auto Diff] Stat Lab 12/23/24 07:38 Completed CMP [Comprehensive Metabolic Panel] Stat Lab 12/23/24 07:38 Completed HIV Combo Stat Lab 12/23/24 07:30 Completed Hepatitis C Ab Qual. W/ RFX Stat Lab 12/23/24 07:30 Completed Lipase Stat Lab 12/23/24 07:38 Completed UA [Urinalysis and Microscopic] Stat Lab 12/23/24 07:38 Completed Medical Decision Narrative: Patient is a 39-year-old male with no significant past medical history presents today for left flank tenderness. On arrival, he is afebrile hemodynamically stable no acute distress. On exam, warm and well-perfused with full pulses and brisk capillary refill. He has reproducible left flank tenderness. His abdominal exam anteriorly is very reassuring with soft, no focal tenderness and no peritoneal signs. Feels similar to kidney stone, was atraumatic and presented on its own with no midline tenderness, no suspicious for recurrent ureterolithiasis. Will obtain cross-sectional imaging of the abdomen to rule out stone or obstruction. Basic hematologic labs to rule out DARREN or electrolyte derangement. Urinalysis to rule out superimposed infection. Less suspicious for bowel obstruction or diverticulitis given no changes with stool and still passing gas no bowel movements. Less likely aortic dissection given absence of hypertension and no tearing sensation as well as reproducibility in the left flank. Independently interpreted by myself to demonstrate the CT abdomen to demonstrate a left-sided stone with mild hydroureteronephrosis. No evidence of bowel obstruction. Radiology calls a 6 mm obstructing stone with mild hydroureteronephrosis. Had an interactive discussion with Dr. Chiu here and he reports that he does not do any interventional work and recommends sending him to . I called the [facility] and consulted with their urologist Dr. Ceja, who after interactive discussion, agrees that we can do symptomatic control at home and follow-up in their clinic. Instructed to precaution discussed, all questions answered patient mental plan and discharge after pain improvement from above interventions. Critical Care Critical Care Time Critical Care Time: No
[2024-12-23 07:37] VITALS: BP 140/90; PULSE 74; O2SAT 99
--- NOTE | 2024-12-23 07:44 | CT_ITS ---
FINAL REPORT TECHNIQUE: Thin section axial images were obtained from the lung bases to the pubic symphysis without IV contrast. Coronal reconstruction images were obtained from the axial data. Exam was performed using dose reduction technique. This study was performed with techniques to keep radiation doses as low as reasonably achievable (ALARA). Individualized dose reduction techniques using automated exposure control or adjustment of mA and/or kV according to the patient's size were employed. CLINICAL HISTORY: l flank ttp, r/o stone. hx prior kidney stones COMPARISON: None FINDINGS: There is mild left hydronephrosis and hydroureter to the level of obstruction secondary to a 6 mm left UVJ stone. No other renal or ureteral stones are identified. The gallbladder is present. There is diffuse fatty infiltration of the liver. The remaining unenhanced solid abdominal organs are unremarkable. There is no evidence of small bowel obstruction. The appendix is normal. GI tract is without acute abnormality. There is no lymphadenopathy or ascites. No acute osseous abnormality is identified. IMPRESSION: Mild left hydronephrosis and hydroureter to the level of an obstructing 6 mm left UVJ stone. No other renal or ureteral stones are identified. Fatty infiltration of the liver. Reviewed, Interpreted and Dictated by Italia Colbert MD Transcribed by Shannan Burnham Authenticated and . [facility]
[2024-12-23 07:49] LABS: Microscopic, Urine URINE MICROSCOPIC (MICROSCOPIC)
[2024-12-23] MEDS: ONDANSETRON 4MG/2ML VIAL 4 MG IV (07:54)
[2024-12-23] MEDS: ACETAMINOPHEN 500MG TAB 1000 MG PO (07:55)
[2024-12-23] MEDS: KETOROLAC 30MG/ML VIAL 15 MG IV (07:55)
[2024-12-23] MEDS: TAMSULOSIN 0.4MG CAPSULE 0.4 MG PO (07:59)
[2024-12-23] MEDS: LACTATED RINGERS 1000ML 1,000 ML 999 ML IV (08:00)
[2024-12-23 08:03] LABS: Hematocrit 46.5 % (42.0-52.0); Hemoglobin 16.1 g/dL (14.1-18.0); Immature Granulocytes % 0.4 %; Mean Corpuscular HGB Conc 34.6 g/dL (31.8-35.4); Mean Corpuscular Hemoglobin 31.3 pg (27.0-31.2); Mean Corpuscular Volume 90.3 fl (80-94); Nucleated Red Blood Cells % 0 %; Platelet Count 201 K/mm3 (142-424); Red Blood Count 5.15 M/mm3 (4.60-6.20); Red Cell Distribution Width-SD 41.7 fL; White Blood Count 7.1 K/mm3 (4.8-10.8)
[2024-12-23 08:11] LABS: Bilirubin,Urine Negative (Negative); Color,Urine YELLOW (Yellow); Glucose,Urine (UA) Negative (Negative); Ketones,Urine Negative (Negative); Leukocyte Esterase,Urine Negative (Negative); PH,Urine 6.0 (5.0-8.5); Protein,Urine Negative (Negative); Specific Gravity, Urine 1.025 (1.005-1.030); Urobilinogen,Urine 0.2 EU/dl (0.2)
[2024-12-23 08:12] LABS: Albumin Level 4.2 g/dl (3.5-5.0); Chloride 98 mmol/L (98-107); Potassium 4.2 mmoL/L (3.5-5.1); Sodium 135 mmol/L (136-145)
[2024-12-23 08:15] LABS: Alanine Aminotransferase 47 U/L (12-78); Albumin/Globulin Ratio 1.1 (1.1-1.8); Alkaline Phosphatase 85 U/L (38-126); Anion Gap 10.2 mEq/L (5-15); Aspartate Amino Transferase 44 U/L (17-59); Bilirubin,Total 0.7 mg/dl (0.2-1.3); Blood Urea Nitrogen 12 mg/dl (9-20); Calcium 8.8 mg/dl (8.4-10.2); Carbon Dioxide 31 mmol/L (22.0-30.0); Creatinine Clearance Estimated 132 mL/min (50-200); Creatinine,Serum 0.80 mg/dl (0.66-1.25); Estimated Glomerular Filt Rate 108 ml/min (>60); GFR (African American) 130 ML/MIN (>60); Globulin 3.9 g/dL (1.3-3.2); Glucose 149 mg/dl (74-100); Lipase 108 U/L (23-300); Total Protein,Serum 8.1 g/dl (6.3-8.2)
[2024-12-23] MEDS: MORPHINE 4MG/ML SYRINGE 4 MG IV (08:57)
[2024-12-23 09:25] LABS: Squamous Epithelial Cell,Urine Occasional #/hpf (0-5); WBC,Urine Occasional #/hpf (0-3)
[2024-12-23 09:30] VITALS: BP 132/80; PULSE 74; O2SAT 99
[2024-12-23] MEDS: HYDROMORPHONE 2MG/ML SYRINGE 1 MG IV (09:30)
[2024-12-23 10:00] VITALS: BP 124/76; PULSE 124; O2SAT 96
[2024-12-23 10:01] LABS: Hepatitis C Ab Qual. W/ RFX NEGATIVE (Negative)
--- NOTE | 2024-12-23 10:19 | PC.NURSE ---
Images were powershared to [facility]. I am currently on the phone with [facility] destiney Harper for a urology consult.
--- NOTE | 2024-12-23 10:37 | PC.NURSE ---
speaking with [facility]
[2024-12-23 11:07] VITALS: BP 121/80; PULSE 74; RESP 14; TEMP 36.8; O2SAT 99
== END 2024-12-23 11:09 | disposition home or self-care (01) ==
PROVIDERS: Emergency Provider Emergency Medicine; PCP Nurse Practitioner Family
DX: N13.0 Hydronephrosis with ureteropelvic junction obstruction (principal); R10.A2 Flank pain, left side
CPT/HCPCS: 74176; 80053; 81001; 83690; 85025; 86803; 87389; 96361; 96374; 96375; 99285; J1171; J1885; J2270; J2405; J7120

== ENCOUNTER 2024-12-30 12:53 | Outpatient (CLI) | payer OTHER, SELFPAY ==
--- NOTE | 2024-12-30 12:54 | XR_ITS ---
FINAL REPORT CLINICAL HISTORY: Stones eval for kidney stones COMPARISON: CT 12/23/2024 FINDINGS: A single view of the abdomen was obtained. The visualized intestinal gas pattern appears unremarkable without evidence to suggest obstruction. Left pelvic calcifications are noted. The more superior left pelvic calcification is suspicious for a left UVJ stone when correlated with recent CT scan. IMPRESSION: Persistent left UVJ stone suspected. Reviewed, Interpreted and Dictated by Sergei Richardson MD Transcribed by Angelika Levy Authenticated and [facility]
--- NOTE | 2024-12-30 13:00 | US_ITS ---
FINAL REPORT CLINICAL HISTORY: .recent lt kidney stone COMPARISON: 12/23/2024 CT abdomen and pelvis FINDINGS: RENAL ULTRASOUND Ultrasound images of the kidneys were obtained. The right kidney measures 12.2 cm in length. The left kidney measures 13.6 cm in length. The kidneys are normal in size. It is normal echogenicity. No evidence of renal stone disease. There is no hydronephrosis. IMPRESSION: Normal renal ultrasound. Reviewed, Interpreted and Dictated by Segrei Richardson MD Transcribed by Angelika Levy Authenticated and [facility]
== END 2024-12-30 23:59 | disposition home or self-care (01) ==
LOC: RAD 12:53
PROVIDERS: PCP Internal Medicine; Visit Provider Urology
DX: N20.0 Calculus of kidney (principal); R93.422 Abnormal radiologic findings on diagnostic imaging of left kidney
CPT/HCPCS: 74018; 76770

== ENCOUNTER 2025-01-17 09:01 | Outpatient (CLI) | payer OTHER, SELFPAY ==
--- NOTE | 2025-01-17 09:04 | XR_ITS ---
FINAL REPORT CLINICAL HISTORY: renal stone, LT SIDE COMPARISON: 12/30/2024 FINDINGS: ABDOMEN SINGLE VIEW There is a nonspecific, nonobstructive bowel gas pattern. No abnormal dilatation is identified. No renal stones are identified. IMPRESSION: No acute process. Reviewed, Interpreted and Dictated by Alf Bond MD Transcribed by Luz Elena Arora Authenticated and . [facility]
== END 2025-01-17 23:59 ==
LOC: RAD 09:01
PROVIDERS: PCP Nurse Practitioner Family; Visit Provider Urology
DX: N20.0 Calculus of kidney (principal)
CPT/HCPCS: 74018